=== PATIENT | female | born 1980 | race American Indian/Alaskan Native ===

== ENCOUNTER 2022-02-10 12:49 | Emergency (ER) | payer OTHER ==
[2022-02-10 18:28] LABS: Hematocrit 43.2 % (30.3-42.9); Hemoglobin 13.7 gm/dl (10.1-14.3); Mean Corpuscular HGB Conc 32 % (30-34); Mean Corpuscular Volume 75 fl (79-97); Platelet Count 242 K/mm3 (140-440); Red Blood Count 5.79 M/mm3 (3.65-5.03); Red Cell Distribution Width 16.7 % (13.2-15.2)
[2022-02-10 18:47] LABS: Alanine Aminotransferase 20 units/L (7-56); Albumin 4.1 g/dL (3.9-5); Blood Urea Nitrogen 9 mg/dL (7-17); Calcium 9.3 mg/dL (8.4-10.2); Hemolysis Index 3
[2022-02-10 18:49] LABS: BUN/Creatinine Ratio 18
[2022-02-10] MEDS ORDERED: KETOROLAC 30 MG/1 ML INJ IM ONE (19:25)
--- NOTE | 2022-02-10 19:31 | Emergency Department Report ---
ED Female HPI - General Chief complaint: Vaginal Bleeding Stated complaint: VAGINAL BLEEDING Time Seen by Provider: 02/10/22 17:37 Source: EMS Mode of arrival: Stretcher Limitations: No Limitations - History of Present Illness Initial comments: 41-year-old black female with no past medical history presents to the emergency department for evaluation of abnormal uterine bleeding. She states that she has had abnormal vaginal bleeding for the past 5 years intermittently. She states that she was recently started on Depo pills and for 1 week she did not have any bleeding, but bleeding started again 4 days ago. She states that bleeding was worse yesterday and she is now saturating 5-6 pads per day. She states that she has also had some dizziness and intermittent abdominal cramping. She states that cramping is 10 out of 10. She denies fever, nausea, vomiting, diarrhea. MD Complaint: vaginal bleeding -: Gradual, days(s) (3) Location: suprapubic, LLQ, RLQ Radiation: non-radiating Severity: moderate Severity scale (0 -10): 8 Quality: cramping Consistency: intermittent Are you Now?: No Associated Symptoms: vaginal bleeding, abdominal pain. denies: vaginal discharge, nausea/vomiting, fever/chills, headaches, loss of appetite, dysuria, hematuria, rash, seizure, shortness of breath, syncope, weakness - Related Data Previous Rx's Medication Instructions Recorded Last Taken Type Naproxen [Naprosyn] 500 mg PO BID 7 Days #14 tab 02/10/22 Unknown Rx Allergies Allergy/AdvReac Type Severity Reaction Status Date / Time No Known Allergies Allergy Verified 02/10/22 12:59 ED Review of Systems ROS: Stated complaint: VAGINAL BLEEDING Other details as noted in HPI Comment: All other systems reviewed and negative Constitutional: denies: chills, fever Respiratory: denies: shortness of breath Cardiovascular: denies: chest pain, palpitations Gastrointestinal: abdominal pain. denies: nausea, vomiting, diarrhea, hematemesis, melena, hematochezia Genitourinary: denies: urgency, dysuria, frequency, hematuria, discharge Musculoskeletal: denies: back pain Neurological: weakness. denies: headache ED Past Medical Hx - Past Medical History Previous Medical History?: No - Medications Home Medications: Home Medications Medication Instructions Recorded Confirmed Last Taken Type Naproxen [Naprosyn] 500 mg PO BID 7 Days #14 tab 02/10/22 Unknown Rx ED Physical Exam - General Limitations: No Limitations General appearance: alert, in no apparent distress - Head Head exam: Present: atraumatic, normocephalic - Eye Eye exam: Present: normal appearance. Absent: conjunctival injection - Neck Neck exam: Present: normal inspection. Absent: tenderness, lymphadenopathy - Respiratory Respiratory exam: Present: normal lung sounds bilaterally. Absent: respiratory distress, wheezes, rales, rhonchi, stridor, chest wall tenderness - Cardiovascular Cardiovascular Exam: Present: regular rate, normal heart sounds - GI/Abdominal GI/Abdominal exam: Present: soft, normal bowel sounds. Absent: distended, tenderness, guarding, rebound, rigid - Extremities Exam Extremities exam: Present: normal inspection, full ROM, normal capillary refill. Absent: tenderness, pedal edema, joint swelling, calf tenderness - Back Exam Back exam: Present: normal inspection. Absent: CVA tenderness (R), CVA tenderness (L) - Neurological Exam Neurological exam: Present: alert, oriented X3 - Psychiatric Psychiatric exam: Present: normal affect, normal mood - Skin Skin exam: Present: warm, dry, intact, normal color ED Course Vital Signs 02/10/22 02/10/22 12:57 19:59 Temperature 98.7 F Pulse Rate 88 84 Respiratory 16 12 Rate Blood Pressure 174/100 163/96 [Left] O2 Sat by Pulse 98 100 Oximetry ED Medical Decision Making - Lab Data Result diagrams: 02/10/22 17:57 02/10/22 17:57 - Medical Decision Making 41-year-old black female with no past medical history presents to the emergency department for evaluation of abnormal uterine bleeding. She states that she has had abnormal vaginal bleeding for the past 5 years intermittently. She states that she was recently started on Depo pills and for 1 week she did not have any bleeding, but bleeding started again 4 days ago. She states that bleeding was worse yesterday and she is now saturating 5-6 pads per day. She states that she has also had some dizziness and intermittent abdominal cramping. She states that cramping is 10 out of 10. She denies fever, nausea, vomiting, diarrhea. Physical exam and work up unremarkable. Patient will be discharged home with 7 day coarse of naproxen and advised to follow up with her combination saw operator for further evaluation and management. She is advised to return to ed as needed. She verbalized understanding of and agreement with plan of care. Critical care attestation.: If time is entered above; I have spent that time in minutes in the direct care of this critically ill patient, excluding procedure time. ED Disposition Clinical Impression: Abnormal vaginal bleeding Disposition: 01 HOME / SELF CARE / HOMELESS Is pt being admited?: No Does the pt Need Aspirin: No Condition: Stable Instructions: Abnormal Uterine Bleeding, [id number], Dysfunctional Uterine Bleeding Additional Instructions: Take medications as prescribed. Follow-up with your PANEL ASSEMBLER for further evaluation and management. Return to the emergency department as needed. Prescriptions: Naproxen [Naprosyn] 500 mg PO BID 7 Days #14 tab Referrals: GAURAV ELIZONDO MD [Staff Physician] - 3-5 Days [facility] [Provider Group] - 3-5 Days [facility] [Provider Group] - 3-5 Days [facility] [Provider Group] - 3-5 Days Forms: Work/School Release Form(ED) Time of Disposition: 19:31
[2022-02-10 20:00] VITALS: BP 163/96
== END 2022-02-10 20:00 | disposition home or self-care (01) ==
LOC: ED 12:49
DX: N93.9 Abnormal uterine and vaginal bleeding, unspecified (principal)
CPT/HCPCS: 36415; 80053; 84703; 85027; 96372; 99283; J1885